=== PATIENT | female | born 2000 | race Caucasian/White ===

== ENCOUNTER 2019-05-24 10:51 | Emergency (ER) | payer MEDICAID ==
[~2019-05-24] VITALS: Ht 165.1 cm; Wt 73.5 kg
[2019-05-24 10:53] VITALS: Ht 165.1 cm; Wt 73.5 kg
[2019-05-24 13:14] VITALS: BP 98/61
== END 2019-05-24 13:14 | disposition home or self-care (01) ==
LOC: ED 10:51
DX: B34.9 Viral infection, unspecified (principal)
CPT/HCPCS: 87804